=== PATIENT | male | born 1965 | race Hispanic/Latino ===

== ENCOUNTER → 2021-01-04 | Outpatient (CLI) | payer BC ==
[~2021-01-04] MED LIST: IOHEXOL-350 50ML VIAL IV ONE
== END | disposition home or self-care (01) ==
LOC: RAH 13:49
PROVIDERS: ATTEND Family Medicine
DX: I25.10 Atherosclerotic heart disease of native coronary artery without angina pectoris (principal); R93.89 Abnormal findings on diagnostic imaging of other specified body structures
CPT/HCPCS: 71270; Q9967

== ENCOUNTER → 2021-05-10 | Outpatient (CLI) | payer BC | END | disposition home or self-care (01) | LOC: RAH 09:25 | PROVIDERS: ATTEND Family Medicine | DX: R05 Cough (principal); J90 Pleural effusion, not elsewhere classified | CPT/HCPCS: 71046 ==

== ENCOUNTER → 2021-05-17 | Outpatient (CLI) | payer BC ==
[~2021-05-17] MED LIST changes: +ALBUHFA IH; -IOHEXOL-350 50ML VIAL IV ONE; +LEVO750T46 PO
== END | disposition home or self-care (01) ==
LOC: RAH 10:23
PROVIDERS: ATTEND Family Medicine
DX: R05 Cough (principal); J90 Pleural effusion, not elsewhere classified
CPT/HCPCS: 71046

== ENCOUNTER 2023-03-04 23:29 | Inpatient (IN) | payer BC ==
[~2023-03-04] VITALS: Ht 165.1 cm; Wt 92.2 kg
[~2023-03-04 23:29] MED LIST changes: -LEVO750T46 PO; +LEVO750T68 PO
[2023-03-05] MEDS ORDERED: KETOROLAC 15MG/ML VIAL (15MG/ML) IV ONE
[2023-03-05] MEDS ORDERED: ONDANSETRON 4MG INJ IVP ONE
[2023-03-05] MEDS ORDERED: MORPHINE 4 MG SYG IVP ONE
[2023-03-05] MEDS ORDERED: CEFTRIAXONE 1G VIAL IVPB ONE (01:00)
[2023-03-05] MEDS ORDERED: ACETAMINOPHEN 500 MG TABLET PO ONE (01:00)
[2023-03-05 01:09] LABS: BASOPHILS % (AUTO) 0.3 % (0.0-5.0); EOSINOPHILS % (AUTO) 0.1 % (0.0-8.0); HEMATOCRIT 39.7 % (42-54); LYMPHOCYTES % (AUTO) 5.2 % (21.0-51.0); MEAN CORPUSCULAR HEMOGLOBIN 25.6 pg (27.0-33.0); MEAN CORPUSCULAR HGB CONC 31.7 g/dL (32.0-36.0); MEAN CORPUSCULAR VOLUME 80.5 fL (79-99); MONOCYTES % (AUTO) 13.5 % (3.0-13.0); NEUTROPHILS % (AUTO) 80.2 % (40.0-77.0); PLATELET COUNT (AUTO) 338 K/uL (130-400); RED BLOOD CELL COUNT(AUTO) 4.93 MIL/uL (4.50-6.20); RED CELL DISTRIBUTION WIDTH 15.1 % (11.0-15.5); WHITE BLOOD COUNT (AUTO) 19.4 K/uL (4.8-10.8)
[2023-03-05 01:20] LABS: CREATININE 0.8 mg/dL (0.5-1.5); POTASSIUM 3.7 mmol/L (3.5-5.1)
[2023-03-05 01:25] LABS: ALBUMIN 3.6 g/dL (3.5-5.0); TOTAL PROTEIN, SERUM 7.2 g/dL (6.0-8.3)
[2023-03-05 01:36] LABS: APPEARANCE,URINE CLEAR (CLEAR); BILIRUBIN,URINE NEGATIVE (NEGATIVE); COLOR,URINE YELLOW (YELLOW); GLUCOSE, URINE (UA) NEGATIVE (NEGATIVE); KETONES,URINE 100 mg/dL (NEGATIVE); LEUKOCYTE ESTERASE ,URINE NEGATIVE Leu/uL (NEGATIVE); NITRATE,URINE NEGATIVE (NEGATIVE); OCCULT BLOOD,URINE NEGATIVE (NEGATIVE); PH,URINE 5.5 (5.0-8.0); PROTEIN,URINE 20 mg/dL (NEGATIVE); UROBILINOGEN,URINE 3 mg/dL (0.2-1.0)
[2023-03-05 01:39] LABS: BACTERIA,URINE MOD /HPF (None Seen); MUCUS,URINE RARE LPF (None Seen); SQUAMOUS EPITHELIAL CELL,UR RARE /HPF (0-2)
[2023-03-05] MEDS: LACTATED RINGERS 1000ML 1,000 ML IV SCH ×2 (02:26→21:53)
[2023-03-05] MEDS ORDERED: ACETAMINOPHEN 650 MG SUPPOSITORY RC PRN (02:30)
[2023-03-05] MEDS ORDERED: ACETAMINOPHEN 325 MG TAB PO PRN (02:30)
[2023-03-05] MEDS ORDERED: CLONIDINE HCL 0.1 MG TABLET PO PRN (02:30)
[2023-03-05] MEDS ORDERED: TEMAZEPAM 15 MG CAPSULE PO PRN (02:30)
[2023-03-05] MEDS ORDERED: LABETALOL 20MG SYG IV PRN (02:30)
[2023-03-05] MEDS ORDERED: DOCUSATE SODIUM 100 MG CAP PO PRN (02:30)
[2023-03-05] MEDS ORDERED: LACTULOSE 20 GM/30 ML UDCUP PO PRN (02:30)
[2023-03-05] MEDS ORDERED: HYDRALAZINE 20MG/ML VIAL IV PRN (02:30)
[2023-03-05] MEDS ORDERED: ONDANSETRON 4MG INJ IVP PRN (02:30)
[2023-03-05] MEDS: MORPHINE 4 MG SYG IVP PRN ×2 (02:32→08:19)
[2023-03-05 04:00] VITALS: BP 128/84
[2023-03-05] MEDS: KETOROLAC 30MG VIAL (30MG/ML) IVP PRN ×2 (04:51→13:22)
[2023-03-05 06:45] LABS: BASOPHILS % (AUTO) 0.2 % (0.0-5.0); EOSINOPHILS % (AUTO) 14.2 % (0.0-8.0); HEMATOCRIT 35.9 % (42-54); LYMPHOCYTES % (AUTO) 5.9 % (21.0-51.0); MEAN CORPUSCULAR HGB CONC 32.3 g/dL (32.0-36.0); MEAN CORPUSCULAR VOLUME 80.3 fL (79-99); MONOCYTES % (AUTO) 11.2 % (3.0-13.0); PLATELET COUNT (AUTO) 290 K/uL (130-400); RED BLOOD CELL COUNT(AUTO) 4.47 MIL/uL (4.50-6.20); RED CELL DISTRIBUTION WIDTH 15.1 % (11.0-15.5); WHITE BLOOD COUNT (AUTO) 22.8 K/uL (4.8-10.8)
[2023-03-05 06:55] LABS: CREATININE 0.7 mg/dL (0.5-1.5)
[2023-03-05 07:52] VITALS: BP 120/71
[2023-03-05] MEDS: PANTOPRAZOLE 40 MG/VIAL IVP SCH (08:13)
[2023-03-05] MEDS ORDERED: CEFTRIAXONE 2GM VIAL IVPB SCH (09:00)
[2023-03-05 11:18] VITALS: BP 118/71
[2023-03-05] MEDS: HEPARIN 5,000 UNIT VIAL SQ SCH (14:47)
[2023-03-05 16:14] VITALS: BP 108/60
[2023-03-05] MEDS ORDERED: NAPROXEN 500 MG TABLET PO PRN (17:00)
[2023-03-05 17:39] LABS: BASOPHILS % (AUTO) 0.3 % (0.0-5.0); EOSINOPHILS % (AUTO) 0.2 % (0.0-8.0); HEMATOCRIT 39.6 % (42-54); LYMPHOCYTES % (AUTO) 7.4 % (21.0-51.0); MEAN CORPUSCULAR HEMOGLOBIN 25.9 pg (27.0-33.0); MEAN CORPUSCULAR HGB CONC 31.3 g/dL (32.0-36.0); MEAN CORPUSCULAR VOLUME 82.7 fL (79-99); NEUTROPHILS % (AUTO) 80.3 % (40.0-77.0); PLATELET COUNT (AUTO) 318 K/uL (130-400); RED BLOOD CELL COUNT(AUTO) 4.79 MIL/uL (4.50-6.20); RED CELL DISTRIBUTION WIDTH 15.2 % (11.0-15.5); WHITE BLOOD COUNT (AUTO) 26.5 K/uL (4.8-10.8)
[2023-03-05] MEDS ORDERED: IOHEXOL 350 MG/ML 100ML INFUS..BTL IV ONE (18:37)
[2023-03-05] MEDS: MEROPENEM 1 GM VIAL IVPB SCH (18:43)
[2023-03-05 20:00] VITALS: BP 109/64
[2023-03-05] MEDS: FAMOTIDINE 20MG VIAL IV SCH (20:00)
[2023-03-05 22:39] VITALS: BP 112/65
[2023-03-06] MEDS: MEROPENEM 1 GM VIAL IVPB SCH ×3 (02:31→17:15)
[2023-03-06] MEDS: HEPARIN 5,000 UNIT VIAL SQ SCH ×2 (02:32→14:20)
[2023-03-06 03:41] VITALS: BP_SYST 110; BP_SYST 114; BP_DIAS 57; BP_DIAS 74
[2023-03-06 04:32] LABS: BASOPHILS % (AUTO) 0.4 % (0.0-5.0); EOSINOPHILS % (AUTO) 0.3 % (0.0-8.0); HEMATOCRIT 36.2 % (42-54); LYMPHOCYTES % (AUTO) 5.6 % (21.0-51.0); MEAN CORPUSCULAR HEMOGLOBIN 25.8 pg (27.0-33.0); MEAN CORPUSCULAR HGB CONC 31.8 g/dL (32.0-36.0); MEAN CORPUSCULAR VOLUME 81.3 fL (79-99); MONOCYTES % (AUTO) 12.8 % (3.0-13.0); NEUTROPHILS % (AUTO) 79.6 % (40.0-77.0); PLATELET COUNT (AUTO) 274 K/uL (130-400); RED BLOOD CELL COUNT(AUTO) 4.45 MIL/uL (4.50-6.20); RED CELL DISTRIBUTION WIDTH 15.2 % (11.0-15.5); WHITE BLOOD COUNT (AUTO) 22.8 K/uL (4.8-10.8)
[2023-03-06 04:59] LABS: ALBUMIN 2.5 g/dL (3.5-5.0); BILIRUBIN,DIRECT 0.2 mg/dL (0.0-0.3); CREATININE 0.8 mg/dL (0.5-1.5); MAGNESIUM 1.9 mg/dL (1.80-2.40); PHOSPHORUS 2.7 mg/dL (2.5-4.9); POTASSIUM 3.6 mmol/L (3.5-5.1); THYROID STIMULATING HORMONE 0.66 uIU/mL (0.36-3.74); TOTAL PROTEIN, SERUM 5.9 g/dL (6.0-8.3)
[2023-03-06 07:46] VITALS: BP 103/56
[2023-03-06] MEDS: FAMOTIDINE 20MG VIAL IV SCH ×2 (09:00→19:39)
[2023-03-06] MEDS: PANTOPRAZOLE 40 MG/VIAL IVP SCH (09:14)
[2023-03-06 11:32] VITALS: BP 120/71
[2023-03-06 12:43] LABS: INR 0.99 (0.85-1.15); PROTHROMBIN TIME 10.8 SEC (9.6-11.6)
[2023-03-06 12:44] LABS: PARTIAL THROMBOPLASTIN TIME 39.2 SEC (26.3-35.5)
[2023-03-06 16:12] VITALS: BP 114/74
[2023-03-06] MEDS: LACTATED RINGERS 1000ML 1,000 ML IV SCH (18:30)
[2023-03-06 19:25] VITALS: BP 110/68
[2023-03-06] MEDS: DOXYCYCLINE HYCLATE 100 MG TABLET PO SCH (19:39)
[2023-03-06] MEDS: MORPHINE 4 MG SYG IVP PRN (20:04)
[2023-03-06 23:33] VITALS: BP 107/67
[2023-03-07] MEDS: MEROPENEM 1 GM VIAL IVPB SCH ×3 (01:19→17:07)
[2023-03-07] MEDS: HEPARIN 5,000 UNIT VIAL SQ SCH ×2 (01:20→14:55)
[2023-03-07 03:55] VITALS: BP 127/72
[2023-03-07 05:31] LABS: BASOPHILS % (AUTO) 0.5 % (0.0-5.0); EOSINOPHILS % (AUTO) 1.3 % (0.0-8.0); HEMATOCRIT 36.4 % (42-54); LYMPHOCYTES % (AUTO) 8.9 % (21.0-51.0); MEAN CORPUSCULAR HEMOGLOBIN 25.7 pg (27.0-33.0); MEAN CORPUSCULAR HGB CONC 31.3 g/dL (32.0-36.0); MEAN CORPUSCULAR VOLUME 82.2 fL (79-99); MONOCYTES % (AUTO) 11.8 % (3.0-13.0); NEUTROPHILS % (AUTO) 76.7 % (40.0-77.0); PLATELET COUNT (AUTO) 295 K/uL (130-400); RED BLOOD CELL COUNT(AUTO) 4.43 MIL/uL (4.50-6.20); RED CELL DISTRIBUTION WIDTH 15.3 % (11.0-15.5); WHITE BLOOD COUNT (AUTO) 19.1 K/uL (4.8-10.8)
[2023-03-07 05:42] LABS: CREATININE 0.8 mg/dL (0.5-1.5); MAGNESIUM 1.8 mg/dL (1.80-2.40); PHOSPHORUS 3.3 mg/dL (2.5-4.9); POTASSIUM 3.5 mmol/L (3.5-5.1)
[2023-03-07 08:00] VITALS: BP 113/53
[2023-03-07] MEDS: DOXYCYCLINE HYCLATE 100 MG TABLET PO SCH ×2 (09:15→20:31)
[2023-03-07] MEDS: PANTOPRAZOLE 40 MG/VIAL IVP SCH (09:15)
[2023-03-07] MEDS: FAMOTIDINE 20MG VIAL IV SCH ×2 (09:15→20:31)
[2023-03-07 09:44] LABS: ABG BASE EXCESS -1.5 mmol/L (-2.0-3.0); ABG HCO3 22.1 mmol/L (21.0-28.0); ABG OXYGEN SATURATION 97.3 % (95.0-99.0); ABG PCO2 34 mmHg (35-48)
[2023-03-07 10:05] VITALS: BP 117/76
[2023-03-07 11:50] VITALS: BP 146/74
[2023-03-07] MEDS: LACTATED RINGERS 1000ML 1,000 ML IV SCH (14:54)
[2023-03-07 16:00] VITALS: BP 114/66
[2023-03-07 20:00] VITALS: BP 116/78
[2023-03-08] VITALS: BP 117/67
[2023-03-08] MEDS: HEPARIN 5,000 UNIT VIAL SQ SCH ×2 (02:04→14:30)
[2023-03-08] MEDS: MEROPENEM 1 GM VIAL IVPB SCH ×3 (02:04→16:50)
[2023-03-08 04:00] VITALS: BP 131/58
[2023-03-08 05:13] LABS: BASOPHILS % (AUTO) 0.6 % (0.0-5.0); EOSINOPHILS % (AUTO) 2.3 % (0.0-8.0); HEMATOCRIT 36.7 % (42-54); LYMPHOCYTES % (AUTO) 13.6 % (21.0-51.0); MEAN CORPUSCULAR HEMOGLOBIN 25.3 pg (27.0-33.0); MEAN CORPUSCULAR HGB CONC 31.1 g/dL (32.0-36.0); MEAN CORPUSCULAR VOLUME 81.4 fL (79-99); MONOCYTES % (AUTO) 14.2 % (3.0-13.0); NEUTROPHILS % (AUTO) 68.2 % (40.0-77.0); PLATELET COUNT (AUTO) 309 K/uL (130-400); RED BLOOD CELL COUNT(AUTO) 4.51 MIL/uL (4.50-6.20); RED CELL DISTRIBUTION WIDTH 15.3 % (11.0-15.5); WHITE BLOOD COUNT (AUTO) 11.6 K/uL (4.8-10.8)
[2023-03-08 05:34] LABS: ALBUMIN 2.3 g/dL (3.5-5.0); CREATININE 0.7 mg/dL (0.5-1.5); MAGNESIUM 1.8 mg/dL (1.80-2.40); PHOSPHORUS 3.7 mg/dL (2.5-4.9); POTASSIUM 3.9 mmol/L (3.5-5.1); TOTAL PROTEIN, SERUM 5.9 g/dL (6.0-8.3)
[2023-03-08] MEDS ORDERED: MAGNESIUM 2GM PREMIX 50ML 50 ML IV PRN (07:00)
[2023-03-08 08:00] VITALS: BP 112/64
[2023-03-08] MEDS: PANTOPRAZOLE 40 MG/VIAL IVP SCH (09:20)
[2023-03-08] MEDS: FAMOTIDINE 20MG VIAL IV SCH (09:20)
[2023-03-08] MEDS: DOXYCYCLINE HYCLATE 100 MG TABLET PO SCH (09:23)
[2023-03-08] MEDS: LACTATED RINGERS 1000ML 1,000 ML IV SCH (10:30)
[2023-03-08 12:10] VITALS: BP 114/68
[2023-03-08 16:00] VITALS: BP 119/67
== END 2023-03-08 18:30 | disposition home or self-care (01) | DRG 872 ==
LOC: EDH 23:29 → OBSVTOIN 03-05 02:00 → EDHIP 03-05 02:00 → 4DH 03-05 04:20
PROVIDERS: ADMIT Internal Medicine Pulmonary Disease; ATTEND Internal Medicine Pulmonary Disease
PROC: 02HV33Z Insertion of Infusion Device into Superior Vena Cava, Percutaneous Approach (ICD-10-PCS; principal; 2023-03-06)
DX: A41.50 Gram-negative sepsis, unspecified (principal); N45.3 Epididymo-orchitis; N43.3 Hydrocele, unspecified; J45.909 Unspecified asthma, uncomplicated; Z68.33 Body mass index [BMI] 33.0-33.9, adult; Z98.84 Bariatric surgery status; E66.9 Obesity, unspecified; Z79.899 Other long term (current) drug therapy
CPT/HCPCS: 36415; 36569; 36600; 71045; 74177; 76870; 80048; 80053; 80076; 81001; 82140; 82435; 82550; 82803; 82947; 82948; 83605; 83735; 84100; 84132; 84145; 84153; 84295; 84443; 85018; 85025; 85610; 85730; 87088; 87486; 87797; C1894; C9113; G0378; J0696; J1644; J1885; J2185; J2270; J2405; J3475; J3490; Q9967